=== PATIENT | female | born 1990 | race Caucasian/White ===

== ENCOUNTER 2019-04-03 16:05 | Inpatient (IN) | payer OTHER, BC | END 2019-04-06 00:30 | disposition home or self-care (01) | LOC: JLDR 16:05 → J3W 04-04 02:22 ==

== ENCOUNTER 2021-02-04 07:00 | Inpatient (IN) | payer OTHER ==
[2021-02-04 08:15] LABS: INR 0.94 (0.83-1.09); PROTHROMBIN TIME (PATIENT) 11.4 SEC (9.7-13.0)
[2021-02-04 08:17] LABS: ACTIVATED PTT 26.7 SECONDS (25.2-36.5)
[2021-02-04 08:32] VITALS: BMI 37.8
[2021-02-04] MEDS ORDERED: OXYTOCIN 30 UNITS in 0.9% NS 30 UNIT/500 ML INFUS.BAG IVPB SCH (09:00)
[2021-02-04 09:13] LABS: BASO % 0.2 % (0-2.0); EOS % 0.3 % (0-4.5); HEMATOCRIT 31.6 % (32.4-45.2); HEMOGLOBIN 10.4 GM/dL (10.7-15.3); LYMPH % 17.3 % (8-40); MCH 27.6 pg (25.7-33.7); MEAN CELL VOLUME 83.8 fl (80-96); MEAN PLT VOLUME 8.7 fl (7.5-11.1); MONO % 5.7 % (3.8-10.2); NEUT % 76.5 % (42.8-82.8); PLATELET COUNT 416 K/MM3 (134-434); RBC 3.77 M/mm3 (3.60-5.2); RDW 13.8 % (11.6-15.6); WHITE BLOOD COUNT 11.5 K/mm3 (4.0-10.0)
[2021-02-04 09:14] LABS: POTASSIUM 4.3 mmol/L (3.5-5.1)
[2021-02-04] MEDS: ELECTROLYTE-148 SOLN 1,000 ML IV SCH ×2 (09:15→16:35)
[2021-02-04 09:16] LABS: BLOOD UREA NITROGEN 8.7 mg/dL (7-18)
[2021-02-04 09:18] LABS: CREATININE 0.6 mg/dL (0.55-1.3)
[2021-02-04] MEDS ORDERED: OXYTOCIN 30 UNITS in 0.9% NS 30 UNIT/500 ML INFUS.BAG IVPB ONE (09:25)
[2021-02-04 10:53] LABS: HIV INTERPRETATION NEGATIVE (NEGATIVE)
[2021-02-04] MEDS ORDERED: BUPIVACAINE HCL/PF 0.25% (2.5MG/ML) 10 ML VIAL ONE (19:02)
[2021-02-04] MEDS ORDERED: FENTANYL/BUPIVACAINE/NS/PF - PCEA - 50 ML DISP.SYRIN EP ONE (19:03)
[2021-02-04] MEDS ORDERED: PCA PUMP NR ONE (19:03)
[2021-02-04] MEDS ORDERED: NALOXONE HCL 0.4 MG/ML VIAL IVPUSH PRN (19:25)
[2021-02-04] MEDS ORDERED: FENTANYL/BUPIVACAINE/NS/PF - PCEA - 50 ML DISP.SYRIN EP SCH (19:30)
[2021-02-04] MEDS ORDERED: OXYTOCIN 20 UNITS in 0.9% NS 20 UNIT/1,000 ML INFUS.BAG IV ONE (21:23)
[2021-02-04] MEDS ORDERED: LIDOCAINE HCL 1% PRESERVATIVE FREE - 30ML VIAL ONE (21:24)
[2021-02-04] MEDS ORDERED: BENZOCAINE 20% 57 GM BOTTLE TP PRN (22:38)
[2021-02-04] MEDS ORDERED: BISACODYL 10 MG SUPP.RECT RC PRN (22:38)
[2021-02-04] MEDS ORDERED: BENZOCAINE 28 GM HEMORRHOIDAL OINTMENT TP PRN (22:38)
[2021-02-04] MEDS ORDERED: METHYLERGONOVINE MALEATE 0.2 MG/1 ML AMP IM PRN (22:38)
[2021-02-04] MEDS ORDERED: WITCH HAZEL 50% (TUCKS) 40 PAD/JAR PAD TP PRN (22:38)
[2021-02-04] MEDS ORDERED: OXYTOCIN 20 UNITS in 0.9% NS 20 UNIT/1,000 ML INFUS.BAG IV SCH (22:45)
[2021-02-05] MEDS: IBUPROFEN 600 MG TABLET (FP) PO PRN ×2 (06:15→14:51)
[2021-02-05] MEDS: ACETAMINOPHEN 325 MG TABLET (FP) PO PRN ×2 (06:15→14:51)
[2021-02-05 08:29] LABS: BASO % 0.2 % (0-2.0); EOS % 0.4 % (0-4.5); HEMATOCRIT 29.3 % (32.4-45.2); HEMOGLOBIN 9.5 GM/dL (10.7-15.3); LYMPH % 16.5 % (8-40); MCH 27.3 pg (25.7-33.7); MCHC 32.5 g/dl (32.0-36.0); MEAN CELL VOLUME 84.1 fl (80-96); MEAN PLT VOLUME 8.4 fl (7.5-11.1); NEUT % 76.9 % (42.8-82.8); PLATELET COUNT 393 K/MM3 (134-434); RBC 3.49 M/mm3 (3.60-5.2); WHITE BLOOD COUNT 13.5 K/mm3 (4.0-10.0)
[2021-02-05] MEDS: PRENATAL VITAMINS W/ FOLIC ACID TABLET (FP) PO SCH (09:47)
[2021-02-05] MEDS ORDERED: SENNOSIDES/DOCUSATE COMBO (SENNA PLUS) TABLET (UD) PO PRN (22:00)
[2021-02-06] MEDS: ACETAMINOPHEN 325 MG TABLET (FP) PO PRN (09:22)
[2021-02-06] MEDS: PRENATAL VITAMINS W/ FOLIC ACID TABLET (FP) PO SCH (09:22)
[2021-02-06] MEDS: IBUPROFEN 600 MG TABLET (FP) PO PRN (09:22)
[2021-02-06 10:10] VITALS: BP 118/64; PULSE 75; TEMP 98
== END 2021-02-06 11:45 | disposition home or self-care (01) | DRG 807 ==
LOC: JLDR 07:00 → J3W 23:26
PROVIDERS: ADMIT Obstetrics & Gynecology; ATTEND Obstetrics & Gynecology
PROC: 10E0XZZ Delivery of Products of Conception, External Approach (ICD-10-PCS; principal; 2021-02-04)
PROC: 0W8NXZZ Division of Female Perineum, External Approach (ICD-10-PCS; 2021-02-04)
PROC: 3E033VJ Introduction of Other Hormone into Peripheral Vein, Percutaneous Approach (ICD-10-PCS; 2021-02-04)
DX: O70.1 Second degree perineal laceration during delivery (principal); O99.214 Obesity complicating childbirth; E66.9 Obesity, unspecified; Z3A.39 39 weeks gestation of pregnancy; Z37.0 Single live birth
CPT/HCPCS: 36415; 59409; 80048; 85025; 85610; 85730; 86780; 86850; 86900; 86901; 87389